=== PATIENT | male | born 1995 | race Caucasian/White ===

== ENCOUNTER 2018-07-02 02:39 | Emergency (ER) | payer BC, OTHER ==
[~2018-07-02] VITALS: Ht 172.7 cm; Wt 81.6 kg
[2018-07-02 02:44] VITALS: BP 128/89
--- NOTE | 2018-07-02 02:47 | NUR ---
pt ambulated to bed 6 with vss.
--- NOTE | 2018-07-02 02:55 | NUR ---
PT PRESENTS TO ED WITH C/O BILATERAL LOWER BACK PAIN AND BILATERAL TESTILCULAR PAIN X 4 DAYS. PT DENIES N/V/D AND FEVER. PT DENIES DIFFICULTY WITH URINATION, NO BLADDER DISTNENTION NOTED. DENIES INJURY OR TRAUMA. PT PLACED INTO BED, PENDING MD KELLY. PMH--DENIES RX--DENIES
--- NOTE | 2018-07-02 03:05 | NUR ---
Patient being evaluated by physician at bedside.
[2018-07-02 03:42] VITALS: BP 128/89
--- NOTE | 2018-07-02 03:43 | NUR ---
Patient discharged with v/s stable. Written and verbal after care instructions given and explained. Patient verbalized understanding. Ambulatory with steady gait. All questions addressed prior to discharge. Advised to follow up with PMD.
== END 2018-07-02 03:43 | disposition home or self-care (01) ==
LOC: MED 02:39
DX: R10.31 Right lower quadrant pain (principal); Z87.891 Personal history of nicotine dependence
CPT/HCPCS: 81002; 99282